=== PATIENT | female | born 1950 | race Hispanic/Latino ===

== ENCOUNTER 2020-03-06 06:57 | Observation (INO) | payer MEDICARE, OTHER ==
--- NOTE | 2020-03-02 12:27 | Diagnostic Imaging Report ---
EXAMINATION: CHEST 2 VIEWS INDICATION: Pre-operative COMPARISON: None FINDINGS: LINES/TUBES:None LUNGS:The lungs are well-inflated. No focal consolidation or pulmonary edema. PLEURA:No pleural effusion or pneumothorax. MEDIASTINUM:The cardiomediastinal silhouette appears normal in size and shape. Atherosclerotic calcifications of the thoracic aorta. BONES/SOFT TISSUES:No acute osseous injury. ABDOMEN:No free air under the diaphragm. IMPRESSION: No focal pneumonia or pulmonary edema. Signed by: Nolvia Martinez MD on 03/02/2020 12:23 PM
[2020-03-02 12:34] LABS: BASOPHILS % 0.3 % (0.0-1.0); EOSINOPHILS # (AUTO) 0.1 (0.0-0.4); EOSINOPHILS % 2.2 % (0.0-6.0); HEMATOCRIT 37.2 % (34.2-44.1); HEMOGLOBIN 12.2 g/dL (12.0-16.0); LYMPHOCYTES # (AUTO) 2.2 (1.0-3.2); LYMPHOCYTES % 35.2 % (18.0-39.1); MEAN CORPUSCULAR HEMOGLOBIN 28.8 pg (28-32); MEAN CORPUSCULAR HGB CONC 32.8 g/dL (31-35); MEAN CORPUSCULAR VOLUME 87.9 fL (81-99); MONOCYTES # (AUTO) 0.5 (0.2-0.8); MONOCYTES % 8.5 % (4.4-11.3); NEUTROPHILS # (AUTO) 3.4 (2.1-6.9); NEUTROPHILS % 53.6 % (38.7-80.0); PLATELET COUNT 217 x10e3/uL (140-360); RED BLOOD COUNT 4.23 x10e6/uL (3.6-5.1); RED CELL DISTRIBUTION WIDTH 13.6 % (11.7-14.4)
[2020-03-02 13:10] LABS: ALANINE AMINOTRANSFERASE 47 IU/L (0-55); ALBUMIN 4.7 g/dL (3.5-5.0); ALBUMIN/GLOBULIN RATIO 1.4 (0.8-2.0); ALKALINE PHOSPHATASE 57 IU/L (40-150); ANION GAP 13.5 mmol/L (8-16); BLOOD UREA NITROGEN 26 mg/dL (7-26); BUN/CREATININE RATIO 28 (6-25); CALCIUM 9.3 mg/dL (8.4-10.2); CARBON DIOXIDE 26 mmol/L (22-29); CHLORIDE 103 mmol/L (98-107); CREATININE, SERUM 0.92 mg/dL (0.57-1.11); EST GLOMERULAR FILTRATION RATE > 60 ML/MIN (60-); GLUCOSE 108 mg/dL (74-118); POTASSIUM 4.5 mmol/L (3.5-5.1); SODIUM 138 mmol/L (136-145)
[~2020-03-06] VITALS: Ht 162.6 cm; Wt 75.3 kg
[~2020-03-06 06:57] MED LIST: ASPIRIN81 MG PO; BENICAR20 MG PO; CEFAZOLIN SOD 1 GM/NS 50ML 100 ML IV ONE; CRESTOR10 MG PO; FENOFIBRATE145 MG PO; OLMESARTAN-HCT1 EACH PO; OMEGA 3 1,0001 EACH PO
[2020-03-06] MEDS ORDERED: ESTROGENS CONJUGATED VAGINAL CR 45 GM TUBE PV ONE (07:13)
[2020-03-06] MEDS ORDERED: LIDOCAINE 1% W/EPINEPHRINE 20 ML VIAL ONE ×2 (07:13→08:19)
[2020-03-06] MEDS ORDERED: BUPIVACAINE 0.25% 30ML SDV INJ ONE (07:13)
[2020-03-06] MEDS ORDERED: ACETAMINOPHEN 325 MG TAB PO PRN (09:45)
[2020-03-06] MEDS ORDERED: KETOROLAC TROMETHAMINE 30 MG/ML VIAL IM PRN (09:45)
[2020-03-06] MEDS ORDERED: ONDANSETRON HCL INJ 2MG/ML 2ML 2 MG/ML VIAL IV PRN (09:45)
[2020-03-06] MEDS ORDERED: ZOLPIDEM TARTRATE 5 MG TAB PO PRN (09:45)
[2020-03-06] MEDS ORDERED: DOCUSATE SODIUM 100 MG CAP PO PRN (09:45)
[2020-03-06] MEDS ORDERED: MEPERIDINE HCL INJ 25 MG/ML VIAL IV PRN (09:45)
[2020-03-06] MEDS ORDERED: DIPHENHYDRAMINE HCL 25 MG CAP PO PRN (09:45)
--- NOTE | 2020-03-06 10:40 | NUR ---
Received patient from PACU. Vital signs stable, no s/s of distress. Garcia draining clear yellow urine. Vaginal packing in place. Patient oriented to room and call light. Bed low, wheels locked, side rails x2. Call light in reach will continue to monitor patient.
[2020-03-06 11:03] VITALS: BP 127/59
[2020-03-06 11:06] VITALS: BP 127/59
[2020-03-06] MEDS: LACTATED RINGER'S 1,000 ML IV SCH ×2 (12:22→21:00)
[2020-03-06] MEDS ORDERED: PROPOFOL IV EMULSION 10 MG/ML 20 ML VIAL ONE (13:02)
[2020-03-06] MEDS ORDERED: DEXAMETHASONE SOD PHOS INJ 4 MG/ML VIAL ONE (13:02)
[2020-03-06] MEDS ORDERED: LABETALOL HCL 5 MG/ML 20ML VIAL ONE (13:02)
[2020-03-06] MEDS ORDERED: ONDANSETRON HCL INJ 2MG/ML 2ML 2 MG/ML VIAL ONE (13:02)
[2020-03-06] MEDS ORDERED: ROCURONIUM BROMIDE 10 MG/ML 5ML VIAL IV ONE (13:02)
[2020-03-06] MEDS ORDERED: EPHEDRINE SULFATE INJ 50 MG/ML VIAL ONE (13:02)
[2020-03-06] MEDS ORDERED: SEVOFLURANE INHAL SOLN 250 ML PEN BTL ONE (13:02)
[2020-03-06] MEDS ORDERED: NEOSTIGMINE 1 MG/ML 10ML VIAL ONE (13:02)
[2020-03-06] MEDS ORDERED: KETOROLAC TROMETHAMINE 30 MG/ML VIAL ONE (13:02)
[2020-03-06] MEDS ORDERED: PHENYLEPHRINE HCL 1% 10 MG/ML VIAL ONE (13:02)
[2020-03-06] MEDS ORDERED: GLYCOPYRROLATE INJ 0.2 MG/ML VIAL ONE (13:02)
[2020-03-06] MEDS ORDERED: LIDOCAINE HCL 2% LOCAL INJ 5 ML SDV VIAL INJ ONE (13:02)
[2020-03-06] MEDS: HYDROCODONE/APAP 10MG-325MG TAB PO PRN (14:25)
[2020-03-06] MEDS ORDERED: MIDAZOLAM HCL 2 MG/2 ML VIAL ONE (14:35)
[2020-03-06] MEDS ORDERED: FENTANYL CITRATE/PF 100MCG/2 ML INJ ONE (14:35)
[2020-03-06 18:01] VITALS: BP 102/63
--- NOTE | 2020-03-06 18:30 | Operative Report ---
DATE OF PROCEDURE: SURGEON: Tarah Simmons MD PREOPERATIVE DIAGNOSIS: Procidentia. POSTOPERATIVE DIAGNOSIS: Procidentia. PROCEDURES: Vaginal hysterectomy, anterior-posterior repair, sacrospinous colpopexy. RESPIRATORY THERAPY MANAGER: Dr. Coni Putnam. COMPLICATIONS: None. ESTIMATED BLOOD LOSS: 50 mL. DESCRIPTION OF PROCEDURE: The patient was taken to the OR. General anesthesia was induced. She was prepped and draped in a normal sterile fashion, placed in dorsal lithotomy position. After examination under anesthesia, a small atrophic uterus procidentia, thick vaginal mucosa, subvaginal tissue was injected with lidocaine with epinephrine 0.25% around the cervix, and circumferential vaginal skin incision was made with a scalpel. The bladder was dissected off the cervix using both curved Dorado scissors and gentle sweeps of latex wrapped on the index finger. Pouch of Marco A was opened with Metzenbaum scissors and using the LigaSure the uterosacrals were held, cauterized and cut, followed by the uterine vessels on uterine vessels were cauterized and cut on both sides. Following this, the probe ligament apex on each side of the uterus was held with a curved zeppelin clamp, and the uterus was freed and sent to pathology. The pedicles were secured with transfixion suture of Vicryl 0. Hemostasis was found to be adequate. A pursestring suture of catgut 3-0 was placed on the bladder to reduce the size of the bladder. Pubocervical ligaments approximated using Vicryl 0 interrupted sutures. Excess vaginal skin was trimmed off. Pelvic fascia was pierced with the index finger, hooked around the anterior pubic ramus on each side and discussed sacrospinous ligament were palpated. Using the Capio needle holt, Vicryl suture was placed on the sacrospinous ligament and the other end was hitched to the vaginal fold. The same was repeated on the other side. Vagina was closed with interlocking sutures of continuous Vicryl 2-0 and sacrospinous sutures were tied and vagina was lifted. Following this, posterior repair was performed with two Allis clamps, applied about 1 cm from the fourchette and the posterior vaginal wall was injected with lidocaine with epinephrine, and a mucocutaneous junction was excised using curved Dorado scissors. The vagina was dissected off the underlying tissue using both sharp and blunt dissection. The perineal muscles were approximated using Vicryl 2-0 and excess vaginal skin was trimmed off using curved Dorado scissors. The vagina was closed with interlocking stitches of Vicryl 2-0 and the superficial perineal muscles were approximated with the same suture and perineal skin was approximated using Vicryl 2-0 stitch. Vaginal pack was inserted and the Garcia catheter revealed clear urine. The patient tolerated the procedure well. Lap, instruments, and needle counts were correct x2 at the end of procedure. Tarah Simmons MD DD/VIKASH /[id number]
[2020-03-06 20:00] VITALS: BP 96/58
--- NOTE | 2020-03-06 20:20 | NUR ---
RECEIVED PT IN BED AOX3 BRIONES DRAINING CLEAR YELLOW URINE ,DENIES PAIN NOW VAGINAL PACKING IN PLACE .RT HAND 20 G LR AT 125 CC/HR .CALL LIGHT WITH IN REACH ,CONTINUE TO MONITOR
[2020-03-06 20:23] VITALS: BP 102/63
[2020-03-07] VITALS: BP 91/56
[2020-03-07 04:00] VITALS: BP 90/55
--- NOTE | 2020-03-07 05:17 | NUR ---
PT DENIES PAIN DURING THE NIGHT ,NO ACUTE DISTRESS NOTED ,CALL LIGHT WITH IN REACH ,CONTINUE TO MONITOR
[2020-03-07 05:56] LABS: BASOPHILS % 0.1 % (0.0-1.0); HEMATOCRIT 28.8 % (34.2-44.1); HEMOGLOBIN 9.3 g/dL (12.0-16.0); LYMPHOCYTES # (AUTO) 1.7 (1.0-3.2); LYMPHOCYTES % 16.2 % (18.0-39.1); MEAN CORPUSCULAR HEMOGLOBIN 28.3 pg (28-32); MEAN CORPUSCULAR HGB CONC 32.3 g/dL (31-35); MEAN CORPUSCULAR VOLUME 87.5 fL (81-99); MONOCYTES # (AUTO) 1.1 (0.2-0.8); MONOCYTES % 10.3 % (4.4-11.3); NEUTROPHILS # (AUTO) 7.7 (2.1-6.9); NEUTROPHILS % 73.2 % (38.7-80.0); PLATELET COUNT 205 x10e3/uL (140-360); RED BLOOD COUNT 3.29 x10e6/uL (3.6-5.1)
[2020-03-07] MEDS: LACTATED RINGER'S 1,000 ML IV SCH (05:57)
[2020-03-07] MEDS: HYDROCODONE/APAP 10MG-325MG TAB PO PRN (05:59)
--- NOTE | 2020-03-07 06:18 | NUR ---
PT C/O PAIN AND GIVEN ORDERED PAIN MEDICATION ,CALL LIGHT WITH IN REACH .CONTINUE TO MONITOR
--- NOTE | 2020-03-07 06:48 | NUR ---
[facility] IS D/C AT 645 AM .PT IS DUE TO VOID .BEDSIDE REPORT GIVEN TO THE ON COMING NURSE
--- NOTE | 2020-03-07 07:00 | NUR ---
Vaginal packing removed per physician orders. Minimal discomfort noted to patient. No bleeding noted.
--- NOTE | 2020-03-07 07:20 | NUR ---
BEDSIDE REPORT GIVEN TO THE ONCOMING NURSE
[2020-03-07 07:58] VITALS: BP 110/57
[2020-03-07 08:13] VITALS: BP 110/57
--- NOTE | 2020-03-07 09:50 | NUR ---
Pt voided at this time with out difficulties. Urine is yellow,clear. Small amount of blood noted.
[2020-03-07 11:56] VITALS: BP 102/54
[2020-03-07] MEDS ORDERED: IBUPROFEN600 MG PO (14:06)
[2020-03-07] MEDS ORDERED: COLACE100 MG PO ×2 (14:06→14:25)
[2020-03-07] MEDS ORDERED: TYLENOL # 31 EA PO ×2 (14:06→14:25)
[2020-03-07] MEDS ORDERED: IBUPROFEN400 MG PO (14:26)
--- NOTE | 2020-03-07 14:57 | NUR ---
Pt discharged home at this time. Pt verbalized understanding of all discharge instructions and follow up appointments. 0 s/s of acute distress noted at time of discharge.
== END 2020-03-07 14:57 | disposition home or self-care (01) ==
LOC: OR 06:57 → PACU V 09:37 → MED/SURG 10:40
PROVIDERS: ADMIT Obstetrics & Gynecology; ATTEND Obstetrics & Gynecology
DX: N81.3 Complete uterovaginal prolapse (principal); D25.1 Intramural leiomyoma of uterus; D25.0 Submucous leiomyoma of uterus; D25.2 Subserosal leiomyoma of uterus; Z01.810 Encounter for preprocedural cardiovascular examination; Z01.812 Encounter for preprocedural laboratory examination; Z01.818 Encounter for other preprocedural examination; Z11.59 Encounter for screening for other viral diseases; K21.9 Gastro-esophageal reflux disease without esophagitis; I10 Essential (primary) hypertension; E78.5 Hyperlipidemia, unspecified
CPT/HCPCS: 36415 ×2; 57260; 58260; 71046; 80053; 85025 ×2; 86850; 86900; 88307; 93005; G0378 ×2; J0690; J1100; J1885; J2001; J2250; J2370; J2405; J2704; J2710; J3010; J3490; J7121 ×2; U0002